=== PATIENT | female | born 1965 | race Caucasian/White ===

== ENCOUNTER 2023-11-06 15:18 | Emergency (ER) | payer BC, SELFPAY ==
[2023-11-06 15:24] VITALS: BP 179/95; PULSE 102; RESP 18; TEMP 36.9; O2SAT 97; BMI 45.5
--- NOTE | 2023-11-06 15:48 | CT_ITS ---
PROCEDURE INFORMATION: Exam: CTA Abdomen and Pelvis With Contrast Exam date and time: 11/06/2023 5:16 PM Age: 57 years old Clinical indication: Injury or trauma; Fall; Blunt trauma; Other: Right flank pain; Additional info: Fall, R CVA pain, R flank pain TECHNIQUE: Imaging protocol: Computed tomographic angiography of the abdomen and pelvis with contrast. Exam focused on the arteries. 3D rendering (Not supervised by radiologist): MIP and/or 3D reconstructed images were created by the technologist. Radiation optimization: All CT scans at this facility use at least one of these dose optimization techniques: automated exposure control; mA and/or kV adjustment per patient size (includes targeted exams where dose is matched to clinical indication); or iterative reconstruction. Contrast material: ISOVUE 370; Contrast volume: 100 ml; Contrast route: INTRAVENOUS (IV); COMPARISON: CT BONY PELVIS 11/06/2023 5:10 PM FINDINGS: Lungs: Mild atelectasis at the lung bases. Diaphragm: Small hiatal hernia. Aorta: No aortic aneurysm. No aortic dissection. Celiac trunk and mesenteric arteries: No occlusion or significant stenosis. Renal arteries: No occlusion or significant stenosis. Right iliac arteries: No occlusion or significant stenosis. Left iliac arteries: No occlusion or significant stenosis. Liver: Hepatic steatosis with hepatomegaly. No liver lesions. Gallbladder and bile ducts: Status post cholecystectomy. No significant biliary ductal dilitation. Pancreas: Unremarkable. No mass. No ductal dilation. Spleen: Unremarkable. No splenomegaly. Adrenal glands: Unremarkable. No mass. Kidneys and ureters: Bilateral renal scarring, greater on the right. No hydronephrosis or focal renal lesion. Stomach and bowel: Mild sigmoid colon diverticulosis without diverticulitis. No dilated or thickened bowel loops. Appendix: No evidence of appendicitis. Intraperitoneal space: Unremarkable. No free air. No significant fluid collection. Lymph nodes: Unremarkable. No enlarged lymph nodes. Urinary bladder: Unremarkable. No mass. Reproductive: Status post hysterectomy. No adnexal masses. Bones/joints: [id number] lumbar spine degenerative change. No evidence of a fracture. Soft tissues: Unremarkable. IMPRESSION: No acute findings.
--- NOTE | 2023-11-06 15:48 | CT_ITS ---
PROCEDURE INFORMATION: Exam: CT Chest Without Contrast; Diagnostic Exam date and time: 11/06/2023 5:07 PM Age: 57 years old Clinical indication: Injury or trauma; Fall; Blunt trauma (contusions or hematomas); Additional info: Fall, R posterior rib and CVA pain TECHNIQUE: Imaging protocol: Diagnostic computed tomography of the chest without contrast. Radiation optimization: All CT scans at this facility use at least one of these dose optimization techniques: automated exposure control; mA and/or kV adjustment per patient size (includes targeted exams where dose is matched to clinical indication); or iterative reconstruction. COMPARISON: No relevant prior studies available. FINDINGS: Lungs: Mild bilateral lower lobe atelectasis. No consolidation or significant nodules. Pleural spaces: Unremarkable. No pneumothorax. No pleural effusion. Heart: No cardiomegaly. Mild lipomatous hypertrophy of the interatrial septum. Coronary arteries: Minimal coronary artery calcification. Lymph nodes: Calcified right paratracheal lymph node. No adenopathy. Vasculature: Unremarkable. No aortic aneurysm. Diaphragm: Small hiatal hernia. Bones/joints: Mild thoracic spine degenerative change. No evidence of a fracture. Severe degenerative change of the left glenohumeral joint. Soft tissues: Unremarkable. IMPRESSION: No acute findings.
--- NOTE | 2023-11-06 15:48 | XR_ITS ---
PROCEDURE INFORMATION: Exam: XR Right Elbow Exam date and time: 11/06/2023 4:41 PM Age: 57 years old Clinical indication: Injury or trauma; Fall; Blunt trauma (contusions or hematomas); Elbow; Right TECHNIQUE: Imaging protocol: Radiologic exam of the right elbow. Views: 3 or more views. COMPARISON: No relevant prior studies available. FINDINGS: Bones/joints: Normal. Soft tissues: Normal. IMPRESSION: No acute findings.
--- NOTE | 2023-11-06 15:48 | CT_ITS ---
PROCEDURE INFORMATION: Exam: CT Pelvis Without Contrast; Skeletal Exam date and time: 11/06/2023 5:10 PM Age: 57 years old Clinical indication: Injury or trauma; Fall; Blunt trauma (contusions or hematomas); Left; Hip; Additional info: Fall, L hip pain TECHNIQUE: Imaging protocol: Computed tomography of the pelvis without contrast. Exam focused on the skeleton. Radiation optimization: All CT scans at this facility use at least one of these dose optimization techniques: automated exposure control; mA and/or kV adjustment per patient size (includes targeted exams where dose is matched to clinical indication); or iterative reconstruction. COMPARISON: CR XR HIP LT 2-3V W/PELVIS 11/06/2023 4:25 PM FINDINGS: Stomach and bowel: Mild sigmoid colon diverticulosis. Reproductive: Status post hysterectomy. Bones/joints: No evidence of a fracture or dislocation. Severe L5-S1 and moderate L4-L5 facet arthropathy. Mild degenerative change of the bilateral hips and sacroiliac joints. Soft tissues: Unremarkable. IMPRESSION: No acute findings.
--- NOTE | 2023-11-06 15:48 | XR_ITS ---
PROCEDURE INFORMATION: Exam: XR Right Knee Exam date and time: 11/06/2023 4:34 PM Age: 57 years old Clinical indication: Injury or trauma; Fall; Blunt trauma; Knee; Right TECHNIQUE: Imaging protocol: Radiologic exam of the right knee. Views: 3 views. COMPARISON: No relevant prior studies available. FINDINGS: Bones/joints: No fracture or dislocation. Moderate medial and lateral compartment and mild patellofemoral compartment degenerative joint disease. Soft tissues: Normal. IMPRESSION: 1. No acute findings. 2. Tricompartmental degenerative joint disease.
--- NOTE | 2023-11-06 15:51 | XR_ITS ---
PROCEDURE INFORMATION: Exam: XR Left Ankle Exam date and time: 11/06/2023 4:30 PM Age: 57 years old Clinical indication: Injury or trauma; Fall; Blunt trauma and swelling (edema); Ankle; Left TECHNIQUE: Imaging protocol: Radiologic exam of the left ankle. Views: 1 or 2 views. COMPARISON: No relevant prior studies available. FINDINGS: Bones/joints: Subchondral cyst in the medial talar dome. Subchondral cysts in the inferior talus adjacent to the middle subtalar joint. Dorsal osteophytic spurring of the talar head. No evidence of a fracture or dislocation. Posterior and plantar surface calcaneal enthesophytes. Soft tissues: Diffuse soft tissue swelling. IMPRESSION: Diffuse soft tissue swelling. No evidence of a fracture.
--- NOTE | 2023-11-06 15:53 | [facility].EDGENADL ---
Discharge Plan Disposition Chief Complaint: Fall Referrals Follow up/Referrals: Aidan Viveros MD [Primary Care Provider] - See instructions Zain Wilson DO [Staff Physician] - See instructions Activity Restrictions/Add. Instructions Additional Instructions/Restrictions: At this time it was felt you are safe to be discharged home. If new or worsening symptoms please do not hesitate to return the emergency department. Please bear weight as tolerated on the affected knee and use crutches and Velcro splint for comfort. If symptoms persist please call and schedule an appointment with Dr. Wilson for continued evaluation as ligamentous injury or meniscal injury are still possible. Clinical Impressions Clinical Impression: Fall, Acute knee pain, Acute hip pain Discharge ED Provider: Luis Armando Castro General Adult HPI General Chief complaint: Fall Stated complaint: 11/04Fall RT knee,elbow and back pain Time Seen by Provider: 11/06/23 15:40 Mode of Arrival: Ambulatory Source of Information: Patient Limitations: No Limitations Description of Symptoms (Recalled from ER Triage Doc. by RN): fell on tuesday evening. pain to r knee and elbow also tailbone. History of Present Illness HPI narrative: Patient is a 57-year-old female with no pertinent past medical history presents emergency department for evaluation of traumatic injury sustained in a fall. Patient slipped on a wet surface falling and striking her bottom and right side. She is currently complaining of right knee pain with limited weightbearing status, right elbow pain, tailbone pain, left hip pain. Denies striking her head or loss of consciousness. Of note patient has vomiting to IV contrast which is pretreated with Benadryl and methylprednisolone. No blood thinners. Related Data Allergies Allergy/AdvReac Type Severity Reaction Status Date / Time ondansetron [From Zofran] Allergy Verified 11/06/23 15:53 [facility] Disclaimer: The information contained in this section may have been updated after the patient was seen, as this information can be updated by other users. Social History Smoking Status: Never smoker alcohol intake: never current occupational status: other Travel in the last 8 weeks: None ROS Obtained: Yes Systems reviewed as appropriate & no additional complaints except as documented Physical Exam General General appearance: alert and in no apparent distress Head Head exam: atraumatic and normocephalic Eye Eye exam: Present PERRL and EOMI ENT ENT exam: Present mucous membranes moist Neck Neck exam: Present normal inspection Chest Chest inspection: Present normal inspection and symmetric chest wall rise Respiratory Respiratory exam: Present normal lung sounds bilaterally; Absent respiratory distress Cardiovascular Cardiovascular exam: Present regular rate and normal rhythm Abdominal Exam Abdominal exam: Present soft and tenderness (Right flank) Extremities Exam Extremities exam: Present other (Swollen and tender right knee with limited active range of motion secondary to pain. Dorsal pedal pulse 2+ on the right. Abrasion on the right elbow with tenderness over the medial and lateral aspect.) Back Exam Back exam: Present tenderness (Tenderness over the left SI joint, no midline tenderness C/T/L-spine. There is tenderness over the sacrum.) and other (Tenderness over the right CVA and right inferior thoracic cage posteriorly.) Neurological Exam Neurological exam: Present alert; Absent motor sensory deficit Psychiatric Psychiatric exam: Present normal affect Skin Skin exam: Present warm and dry Medical Decision Making Hema Inquiry Pt receiving controlled substance: No Vital Signs: 11/06/23 15:24 Temperature 98.4 F Temperature Source Oral Pulse Rate [Right Radial] 102 H Respiratory Rate 18 Blood Pressure [Right Arm] 179/95 H Blood Pressure Mean [Right Arm] 123 02 Sat by Pulse Oximetry 97 Oxygen Delivery Method Room Air Lab Data Lab Results 11/06/23 16:03: WBC 9.4, RBC 4.57, Hgb 15.2, Hct 44.9, MCV 98.1, MCH 33.3 H, MCHC 34.0, RDW 15.2, Plt Count 296, MPV 8.8, Neut % (Auto) 74.9, Lymph % (Auto) 18.8, Patrick % (Auto) 3.4, Eos % (Auto) 2.2, Baso % (Auto) 0.8, Neut # (Auto) 7.0, Lymph # (Auto) 1.8, Patrick # (Auto) 0.3, Eos # (Auto) 0.2, Baso # (Auto) 0.1, Sodium 136, Potassium 3.4 L, Chloride 99, Carbon Dioxide 29, Anion Gap 11.4, BUN 15, Creatinine 1.10 H, Estimated Creat Clear 46, Estimated GFR 52 L, Est GFR ( Amer) 62, Glucose 300 H, Calcium 9.0, Total Bilirubin 0.6, AST 29, ALT 26, Alkaline Phosphatase 96, Total Protein 7.0, Albumin 4.2, Globulin 2.8, Albumin/Globulin Ratio 1.5 11/06/23 16:03 11/06/23 16:03 Orders (Tests/Meds): ED MEDICATIONS Generic Name Dose Route Start Last Admin Trade Name Mannie PRN Reason Stop Dose Admin Sodium Chloride 10 ml 11/06/23 17:33 11/06/23 17:34 Sodium Chloride 0.9% 10ml Syr (Rad Only) IV 12/06/23 17:32 10 ml NEEDED PRN Administration Maintain IV Site Discontinued Medications Generic Name Dose Route Start Last Admin Trade Name Mannie PRN Reason Stop Dose Admin Acetaminophen 1,000 mg 11/06/23 15:48 11/06/23 16:17 Acetaminophen 1,000mg/100ml Vial IV 11/06/23 15:49 1,000 mg ONCE ONE Administration Diphenhydramine HCl 50 mg 11/06/23 15:48 11/06/23 16:17 Diphenhydramine 50mg/Ml Vial IV 11/06/23 15:49 50 mg ONCE ONE Administration Iopamidol 100 ml 11/06/23 17:33 11/06/23 17:34 Iopamidol-370 (76%);100ml Bottle IV 11/06/23 17:34 100 ml ONCE ONE Administration Methylprednisolone Sodium Succinate 125 mg 11/06/23 15:48 11/06/23 16:17 Methylprednisolone Sod Succ 125mg Vial IV 11/06/23 15:49 125 mg ONCE ONE Administration Oxycodone HCl 5 mg 11/06/23 17:50 11/06/23 17:56 Oxycodone 5mg Immediate Release Tablet PO 11/06/23 17:51 5 mg ONCE ONE Administration Sodium Chloride 50 ml 11/06/23 17:33 11/06/23 17:34 0.9 % Sodium Chloride 50 Ml Vial IV 11/06/23 17:34 50 ml ONCE ONE Administration ORDERS Category Date Time Status CT angio abdomen pelvis Stat Cat Scan 11/06/23 15:[address] bony pelvis Stat Cat Scan 11/06/23 15:[address] chest wo con Stat Cat Scan 11/06/23 15:48 Completed Ankle XR - Left 2 Views [XR ankle LT 2V] Stat Exams 11/06/23 15:51 Completed Elbow XR right minimum 3 views [XR elbow RT min 3V] Exams 11/06/23 15:48 Completed Stat Hip XR left minimum 2 views [XR hip LT 2-3V w/pelvis] Exams 11/06/23 15:58 Completed Stat Knee XR right 3 views [XR knee RT 3V] Stat Exams 11/06/23 15:48 Completed CBC w/Auto Diff [Complete Blood Count Auto Diff] Stat Lab 11/06/23 16:03 Completed CMP [Comprehensive Metabolic Panel] Stat Lab 11/06/23 16:03 Completed Medical Decision Narrative: In summary patient is a 57-year-old female with past medical history described above presents emergency department for evaluation of traumatic injury sustained in a fall. Patient is hemodynamically stable nontoxic-appearing upon arrival, afebrile. Differential diagnosis includes fracture, hematoma, renal laceration, ligamentous injury, among others. Workup will be conducted with hematologic labs, plain from the right elbow, right knee, left ankle, AP pelvis and left femur. CT chest without contrast and CTA abdomen pelvis with contrast will be obtained for thorax injuries. CT of the cervical spine and head was considered however patient is cleared per Fletcher guidelines from a cervical spine standpoint and has no reported history of trauma to the head so will be deferred. Initial inventions include pretreatment for contrast with Benadryl and methylprednisolone. IV Tylenol will be administered. Workup reviewed by me, hematologic labs are nonactionable, hyperglycemic. Trauma survey remarkable for swelling of the left ankle, tricompartmental degenerative joint disease of the right knee, no acute other pathology. Given this patient was placed in a Velcro knee splint and given crutches for comfort and instructed to range her knee as she is able to bear weight as tolerated and follow-up with PCP for continued evaluation and possible orthopedic referral. Critical Care Critical Care Time Critical Care Time: No
--- NOTE | 2023-11-06 15:58 | XR_ITS ---
PROCEDURE INFORMATION: Exam: XR Left Hip Exam date and time: 11/06/2023 4:25 PM Age: 57 years old Clinical indication: Injury or trauma; Fall; Blunt trauma (contusions or hematomas); Left; Hip TECHNIQUE: Imaging protocol: Radiologic exam of the left hip. Views: 2 or 3 views hip with pelvis when performed. COMPARISON: No relevant prior studies available. FINDINGS: Bones/joints: No fracture or dislocation. Mild degenerative joint disease of the bilateral hips. Soft tissues: Unremarkable. IMPRESSION: No acute findings.
[2023-11-06 16:05] VITALS: BP 147/83; PULSE 97; O2SAT 97
[2023-11-06 16:17] LABS: Basophils # 0.1 K/mm3 (0-0.2); Basophils % 0.8 % (0.1-2.0); Eosinophils # 0.2 K/mm3 (0.0-0.4); Eosinophils % 2.2 % (0.1-12.0); Hematocrit 44.9 % (37.0-47.0); Hemoglobin 15.2 g/dL (12.2-16.2); Lymphocytes # 1.8 K/mm3 (0.7-4.5); Lymphocytes % 18.8 % (10-50); Mean Corpuscular Hemoglobin 33.3 pg (27.0-31.2); Mean Corpuscular Volume 98.1 fl (81-99); Mean Platelet Volume 8.8 fl (7.4-10.4); Monocytes # 0.3 K/mm3 (0.1-1.0); Monocytes % 3.4 % (1.7-9.3); Neutrophils % 74.9 % (37.0-80.0); Platelet Count 296 K/mm3 (142-424); Red Blood Count 4.57 M/mm3 (4.20-5.40); Red Cell Distribution Width 15.2 % (11.5-17.5); White Blood Count 9.4 K/mm3 (4.8-10.8)
[2023-11-06] MEDS: ACETAMINOPHEN 1,000MG/100ML VIAL 1000 MG IV (16:17)
[2023-11-06] MEDS: METHYLPREDNISOLONE SOD SUCC 125MG VIAL 125 MG IV (16:17)
[2023-11-06] MEDS: diphenhydrAMINE 50MG/ML VIAL 50 MG IV (16:17)
[2023-11-06 16:23] LABS: Chloride 99 mmol/L (98-107); Sodium 136 mmol/L (136-145)
[2023-11-06 16:24] LABS: Potassium 3.4 mmoL/L (3.5-5.1)
[2023-11-06 16:26] LABS: Alanine Aminotransferase 26 U/L (12-78); Alkaline Phosphatase 96 U/L (38-126); Aspartate Amino Transferase 29 U/L (14-36); Bilirubin,Total 0.6 mg/dl (0.2-1.3); Blood Urea Nitrogen 15 mg/dl (7-17); Creatinine Clearance Estimated 46 mL/min (50-200); Estimated Glomerular Filt Rate 52 ml/min (>60); GFR (African American) 62 ML/MIN (>60)
[2023-11-06 16:27] LABS: Albumin Level 4.2 g/dl (3.5-5.0); Albumin/Globulin Ratio 1.5 (1.1-1.8); Anion Gap 11.4 mEq/L (5-15); Carbon Dioxide 29 mmol/L (22.0-30.0); Globulin 2.8 g/dL (1.3-3.2); Glucose 300 mg/dl (74-100)
--- NOTE | 2023-11-06 16:56 | PC.NURSE ---
Patient to RAD.
[2023-11-06] MEDS: 0.9 % SODIUM CHLORIDE 50 ML VIAL IV (17:34)
[2023-11-06] MEDS: IOPAMIDOL-370 (76%);100ML BOTTLE 100 ML IV (17:34)
[2023-11-06] MEDS: SODIUM CHLORIDE 0.9% 10ML SYR (RAD ONLY) 10 ML IV (17:34)
[2023-11-06] MEDS: OXYCODONE 5MG IMMEDIATE RELEASE TABLET 5 MG PO (17:56)
--- NOTE | 2023-11-06 17:59 | PC.NURSE ---
DR VALADEZ AT BEDSIDE TO REEVALUATE PT
[2023-11-06 18:47] VITALS: BP 131/80; PULSE 89; O2SAT 96
[2023-11-06] MEDS: KETOROLAC 30MG/ML VIAL 30 MG IV (19:03)
[2023-11-06 19:25] VITALS: BP 124/76; PULSE 78; RESP 20; TEMP 36.7; O2SAT 98
== END 2023-11-06 19:40 | disposition home or self-care (01) ==
PROVIDERS: Emergency Provider Emergency Medicine; PCP Internal Medicine
DX: M25.561 Pain in right knee (principal); M25.551 Pain in right hip; M25.521 Pain in right elbow; M53.3 Sacrococcygeal disorders, not elsewhere classified; W01.10XA Fall on same level from slipping, tripping and stumbling with subsequent striking against unspecified object, initial encounter
CPT/HCPCS: 71250; 72192; 73080; 73502; 73562; 73600; 74174; 80053; 85025; 96374; 96375; 99285; J0131; Q9967

== ENCOUNTER 2024-06-29 10:51 | Emergency (ER) | payer BC, SELFPAY ==
[2024-06-29] VITALS (15 sets, daily range): BP systolic 107–166; BP diastolic 53–103; PULSE 73–104; RESP 16–22; TEMP 36.6–36.7; O2SAT 95–100; BMI 41.8
--- NOTE | 2024-06-29 11:17 | CT_ITS ---
FINAL REPORT CLINICAL HISTORY: new concern for movement disorder/tic involuntary movement of mouth COMPARISON: None FINDINGS: Axial images of the head were obtained without contrast. Coronal and sagittal reformatted images were also obtained. This study was performed with techniques to keep radiation doses as low as reasonably achievable (ALARA). Individualized dose reduction techniques using automated exposure control or adjustment of mA and/or kV according to the patient's size were employed. There is mild generalized age appropriate atrophy. There are mild periventricular lobe densities that are consistent with mild changes of ischemic/chronic microvascular disease. There is no evidence of intracranial hemorrhage or mass. The ventricular size is within normal limits. There is no evidence of shift of the midline structures. No skull abnormality is seen on the bone window images. IMPRESSION: No acute intracranial abnormality. Mild atrophy and mild changes of chronic ischemic/gliotic microvascular disease. Reviewed, Interpreted and Dictated by Adrien Dill III, MD Transcribed by Gisela Mercado Authenticated and [facility]
[2024-06-29 11:29] LABS: Microscopic, Urine URINE MICROSCOPIC (MICROSCOPIC)
[2024-06-29 11:30] LABS: Basophils # 0.1 K/mm3 (0-0.2); Basophils % 0.8 % (0.1-2.0); Eosinophils # 0.1 K/mm3 (0.0-0.4); Eosinophils % 0.9 % (0.1-12.0); Hematocrit 39.7 % (37.0-47.0); Hemoglobin 12.2 g/dL (12.2-16.2); Lymphocytes # 1.2 K/mm3 (0.7-4.5); Lymphocytes % 14.5 % (10-50); Mean Corpuscular HGB Conc 30.7 g/dL (31.8-35.4); Mean Corpuscular Hemoglobin 32.3 pg (27.0-31.2); Mean Corpuscular Volume 105.4 fl (81-99); Mean Platelet Volume 8.3 fl (7.4-10.4); Monocytes # 0.3 K/mm3 (0.1-1.0); Monocytes % 3.5 % (1.7-9.3); Neutrophils # 6.9 K/mm3 (1.8-7.8); Neutrophils % 80.5 % (37.0-80.0); Platelet Count 374 K/mm3 (142-424); Red Blood Count 3.76 M/mm3 (4.20-5.40); Red Cell Distribution Width 16.5 % (11.5-17.5); White Blood Count 8.5 K/mm3 (4.8-10.8)
[2024-06-29] MEDS: hydrOXYzine pamoate 25MG CAPSULE 50 MG PO (11:31)
--- NOTE | 2024-06-29 11:35 | XR_ITS ---
FINAL REPORT CLINICAL HISTORY: Patient concern for aspiration COMPARISON: None FINDINGS: A single portable view of the chest was obtained. The heart is enlarged. Pulmonary vascularity is within normal limits. The mediastinum is within normal limits. No acute pulmonary abnormality is identified. The bony thorax is intact. IMPRESSION: No active cardiopulmonary disease. Reviewed, Interpreted and Dictated by Adrien Dill III, MD Transcribed by Matilde Pittman Authenticated and [facility]
[2024-06-29 11:36] LABS: Ethyl Alcohol < 10 mg/dl (0-10)
--- NOTE | 2024-06-29 11:38 | PC.NURSE ---
patient gone to CT at this time.
[2024-06-29 11:43] LABS: Ammonia < 9 umol/L (9-30)
[2024-06-29 11:43] LABS: Phosphorous 3.3 mg/dl (2.5-4.5)
--- NOTE | 2024-06-29 11:43 | PC.NURSE ---
patient back in room
--- NOTE | 2024-06-29 11:43 | [facility].EDGENADL ---
Discharge Plan Disposition Patient Disposition: Home, Self-Care Condition: Fair Prescriptions Prescriptions: No Action oxycodone 5 mg tablet 5 mg PO Q8H PRN (Reason: severe pain) Qty: 3 0RF Referrals Follow up/Referrals: Aidan Viveros MD [Primary Care Provider] - See instructions Activity Restrictions/Add. Instructions Additional Instructions/Restrictions: Talk to your family doctor about gradually decreasing/tapering your Xanax. Call your family doctor to establish care for this visit to the emergency department and schedule follow-up within 48 hours to ensure improvement. If you have any worsening of your condition or any other concerning signs or symptoms, return to the emergency department or your primary care doctor for further evaluation. Clinical Impressions Clinical Impression: Involuntary jerky movements Print Language Print Language: American Discharge ED Provider: Mehul Singh General Adult HPI <Mehul Singh MD - Last Filed: 06/29/24 15:41> General Chief complaint: Neuro Symptoms/Deficit Stated complaint: shaking, lightheaded Time Seen by Provider: 06/29/24 10:57 Mode of Arrival: Wheelchair Source of Information: Patient Limitations: No Limitations Description of Symptoms (Recalled from ER Triage Doc. by RN): Pt. presents to the ED with complaints of involuntary movements that are worsening for the last 2 days. She states she was in the hospital with a left leg blood clot. During this time she took herself off her cymbalta, wellbutrin, and xanax. She has been doing well until the last couple days when the movements started. History of Present Illness HPI narrative: Please note that above description of symptoms, in this electronic medical record under categorization of recalled from ER triage doctor by RN are reflective of an initial nursing assessment, however, is not reflective of my full history and physical exam that was personally taken and clarified. Consequentially, this preceding description of symptoms, which may include the patient's categorized chief complaint in the EMR, do not reflect my personal clinical impression, and the ultimate description of history of present illness and patient stated complaints should be deferred to this section of the note. Unless stated otherwise or congruent with this section of the note, additional signs, symptoms, or incongruence should be interpreted as inaccurate with my clinical impression. Related Data Previous Rx's ?Medication ?Instructions ?Recorded oxycodone 5 mg tablet 5 mg PO Q8H PRN severe pain #3 tabs 11/06/23 Allergies Allergy/AdvReac Type Severity Reaction Status Date / Time ondansetron [From Zofran] Allergy Verified 11/06/23 15:53 PFSH <Mehul Singh MD - Last Filed: 06/29/24 15:41> PFS Disclaimer: The information contained in this section may have been updated after the patient was seen, as this information can be updated by other users. Social History (Updated 11/06/23 @ 18:55 by Luis Armando Castro MD) Smoking Status: Never smoker alcohol intake: never current occupational status: other Travel in the last 8 weeks: None <Mehul Singh MD - Last Filed: 06/29/24 15:41> ROS Obtained: Yes All systems reviewed & no additional complaints except as documented Physical Exam <Mehul Singh MD - Last Filed: 06/29/24 15:41> General General appearance: alert and in no apparent distress Head Head exam: atraumatic and normocephalic Eye Eye exam: Present normal appearance, PERRL and EOMI Neck Neck exam: Present normal inspection, full ROM and trachea midline Respiratory Respiratory exam: Absent respiratory distress, wheezes, stridor, accessory muscle use or prolonged expiratory phase Cardiovascular Cardiovascular exam: Present other (Pulses equal symmetric in upper and lower extremities) Abdominal Exam Abdominal exam: Present soft; Absent distention, tenderness or pulsatile mass Extremities Exam Extremities exam: Absent edema Neurological Exam Neurological exam: Present alert, oriented X3, CN II-XII intact, normal gait and other (Per MDM); Absent motor sensory deficit Skin Skin exam: Present warm and dry; Absent diaphoresis or erythema Medical Decision Making <Mehul Singh MD - Last Filed: 06/29/24 15:41> Medical Records Medical records reviewed: Yes I reviewed the patient's medical records. Hema Inquiry Pt receiving controlled substance: No Hema was queried for this patient: No Vital Signs: 06/29/24 11:02 06/29/24 11:08 06/29/24 11:44 Temperature 97.9 F Temperature Source Oral Pulse Rate 97 H 104 H Pulse Rate [Right Brachial] 97 H Respiratory Rate 22 Blood Pressure 132/75 Blood Pressure [Right Arm] 107/89 L Blood Pressure Mean Blood Pressure Mean [Right Arm] 95 Blood Pressure Source Blood Pressure Source [Right Arm] Automatic Cuff Blood Pressure Position Blood Pressure Position [Right Arm] Sitting 02 Sat by Pulse Oximetry 98 98 95 Oxygen Delivery Method Room Air 06/29/24 12:00 06/29/24 12:43 06/29/24 13:00 Temperature Temperature Source Pulse Rate 83 76 73 Pulse Rate [Right Brachial] Respiratory Rate Blood Pressure 128/71 115/53 L 127/98 H Blood Pressure [Right Arm] Blood Pressure Mean Blood Pressure Mean [Right Arm] Blood Pressure Source Blood Pressure Source [Right Arm] Blood Pressure Position Blood Pressure Position [Right Arm] 02 Sat by Pulse Oximetry 98 97 100 Oxygen Delivery Method 06/29/24 13:31 06/29/24 13:51 06/29/24 14:00 Temperature Temperature Source Pulse Rate 83 76 76 Pulse Rate [Right Brachial] Respiratory Rate Blood Pressure 121/65 125/64 143/66 H Blood Pressure [Right Arm] Blood Pressure Mean Blood Pressure Mean [Right Arm] Blood Pressure Source Blood Pressure Source [Right Arm] Blood Pressure Position Blood Pressure Position [Right Arm] 02 Sat by Pulse Oximetry 97 98 98 Oxygen Delivery Method 06/29/24 15:01 06/29/24 15:30 06/29/24 16:00 Temperature Temperature Source Pulse Rate 83 90 Pulse Rate [Right Brachial] Respiratory Rate Blood Pressure 131/64 142/59 H 130/103 H Blood Pressure [Right Arm] Blood Pressure Mean 109 Blood Pressure Mean [Right Arm] Blood Pressure Source Blood Pressure Source [Right Arm] Blood Pressure Position Blood Pressure Position [Right Arm] 02 Sat by Pulse Oximetry 98 96 Oxygen Delivery Method 06/29/24 16:30 06/29/24 17:30 06/29/24 17:44 Temperature 98.0 F Temperature Source Temporal Artery Scan Pulse Rate 78 Pulse Rate [Right Brachial] Respiratory Rate 16 Blood Pressure 122/60 121/75 166/70 H Blood Pressure [Right Arm] Blood Pressure Mean 93 90 Blood Pressure Mean [Right Arm] Blood Pressure Source Automatic Cuff Blood Pressure Source [Right Arm] Blood Pressure Position Sitting Blood Pressure Position [Right Arm] 02 Sat by Pulse Oximetry Oxygen Delivery Method Room Air Lab Data Lab Results 06/29/24 11:14: WBC 8.5, RBC 3.76 L, Hgb 12.2, Hct 39.7, MCV 105.4 H, MCH 32.3 H, MCHC 30.7 L, RDW 16.5, Plt Count 374, MPV 8.3, Neut % (Auto) 80.5 H, Lymph % (Auto) 14.5, [place] % (Auto) 3.5, Eos % (Auto) 0.9, Baso % (Auto) 0.8, Neut # (Auto) 6.9, Lymph # (Auto) 1.2, [place] # (Auto) 0.3, Eos # (Auto) 0.1, Baso # (Auto) 0.1, APTT 27.9, Sodium 140, Potassium 3.9, Chloride 107, Carbon Dioxide 28, Anion Gap 8.9, BUN 15, Creatinine 1.00, Estimated Creat Clear 50, Estimated GFR 57 L, Est GFR ( Amer) 69, Glucose 142 H, Hemoglobin A1c 8.1 H, Calcium 9.4, Phosphorus 3.3, Magnesium 1.8, Total Bilirubin 0.6, AST 27, ALT 15, Alkaline Phosphatase 68, Troponin I < 0.01, Total Protein 6.8, Albumin 3.7, Globulin 3.1, Albumin/Globulin Ratio 1.2, Vitamin B12 377, Folate 3.98, Thyroxine (T4) 8.4, PTH Intact 114.2 H, Urine Color Yellow, Urine Appearance Clear, Urine pH 6.0, Ur Specific Sunshine 1.020, Urine Protein Negative, Urine Glucose (UA) Negative, Urine Ketones 1+, Urine Blood Negative, Urine Nitrate Negative, Urine Bilirubin Negative, Urine Urobilinogen 1.0, Ur Leukocyte Esterase 1+ A, Urine RBC None, Urine WBC 10-20, Ur Squamous Epith Cells 20-50, Urine Bacteria Trace, Urine Opiates Screen Negative, Urine Methadone Screen Negative, Ur Barbituates Screen Negative, Ur Phencyclidine Scrn Negative, Ur Amphetamines Screen Negative, U Benzodiazepines Scrn Positive H, Urine Cocaine Screen Negative, U Marijuana (THC) Screen Positive H, Plasma/Serum Alcohol < 10 06/29/24 14:25: Troponin I < 0.01 06/29/24 : Ammonia < 9 L 06/29/24 11:14 06/29/24 11:14 Orders (Tests/Meds): ED MEDICATIONS Discontinued Medications Generic Name Dose Route Start Last Admin Trade Name Freq PRN Reason Stop Dose Admin Alprazolam 2 mg 06/29/24 15:25 06/29/24 15:37 Alprazolam 1mg Tablet PO 06/29/24 15:26 2 mg ONCE ONE Administration Glucose 15 gm 06/29/24 15:00 06/29/24 15:05 Dextrose 15gm Packet PO 06/29/24 15:01 15 gm ONCE ONE Administration Hydroxyzine Pamoate 50 mg 06/29/24 11:19 06/29/24 11:31 Hydroxyzine Pamoate 25mg Capsule PO 06/29/24 11:20 50 mg ONCE ONE Administration Lorazepam 2 mg 06/29/24 15:16 06/29/24 15:28 Lorazepam 1mg Tablet PO 06/29/24 15:17 Not Given ONCE ONE Sodium Chloride 10 ml 06/29/24 11:25 Sodium Chloride 0.9% 10ml Flush Syringe IV 07/29/24 11:24 NEEDED PRN Maintain IV Site ORDERS Category Date Time Status CT head/brain wo con Stat Cat Scan 06/29/24 11:17 Completed CXR --portable [XR chest portable] Stat Exams 06/29/24 11:35 Completed Ammonia Stat Lab 06/29/24 Completed Complete Blood Count Auto Diff Stat Lab 06/29/24 11:14 Completed Comprehensive Metabolic Panel Stat Lab 06/29/24 11:14 Completed Drug Screen,Urine Stat Lab 06/29/24 11:14 Completed Ethanol [Ethyl Alcohol] Stat Lab 06/29/24 11:14 Completed Folate Stat Lab 06/29/24 11:14 Completed Hemoglobin A1C Stat Lab 06/29/24 11:14 Completed Intact Parathyroid Hormone Stat Lab 06/29/24 11:14 Completed Magnesium Stat Lab 06/29/24 11:14 Completed PHOS [Phosphorous] Stat Lab 06/29/24 11:14 Completed PTT [Activated Partial Thrombo Time] Stat Lab 06/29/24 11:14 Completed T4 (Thyroxine) Stat Lab 06/29/24 11:14 Completed Troponin I Q3H Lab 06/29/24 14:25 Completed Troponin I Stat Lab 06/29/24 11:14 Completed Urinalysis and Microscopic Stat Lab 06/29/24 11:14 Completed Vitamin B12 Stat Lab 06/29/24 11:14 Completed Urine Culture Stat Micro 06/29/24 11:14 Received Medical Decision Narrative: 58-year-old female history of depression, anxiety, recent extensive venous and arterial thrombus left lower extremity necessitating surgical removal currently on Eliquis presenting with new movement disorder. States this has been going on for the last 2 days. Patient states that when she is eating she is able to sense it coming on, and is able to prevent herself from aspirating. Has sudden, forceful jerks face, neck, trunk, upper extremities. No lower extremity symptoms. Patient states she ambulates without issue, has not had falls. No chest pain, shortness of breath, nausea, vomiting, vision changes, neck or back stiffness, loss of bowel or bladder, tongue biting, cheek biting, loss of consciousness, or any other concerns. She does state that she is concerned she may have aspirated, but is having no symptoms from that. Family at bedside also providing history, states the patient has recently been taken off of multiple medications including SSRI, benzodiazepine, pain and anxiety medications. In the last few days, has increased her gabapentin from 300-600 3 times daily. Unsure if these are related. Also states that patient has been severely depressed since the scientology of lower extremity clot and removal and starting on blood thinners she was active, participating in daily activities actively prior, now has been depressed and largely stays in bed all day. History was obtained via conversation with patient and family. On arrival, patient hemodynamically stable, alert, oriented x4, appropriate, GCS 15, moving all extremities spontaneously, pupils equal and reactive to light. Full physical exam performed and significant for well-appearing 58-year-old female who is in no acute distress. Intermittently having forceful jerks of head, neck, upper extremities. Speaking in full sentences without issue. Movement disorder is distractible. Although happening every 5 to 10 seconds when patient is at rest and not interacting, patient has no episodes of this during entire neurologic exam including cranial nerve, cerebellar, motor and sensory exams over the period of a few minutes. Cardiac exam within normal limits. Left lower extremity is edematous, mildly discolored, but significantly improved from photos which family showed me at bedside from previous intervention. Pulses are equal and symmetric in lower extremities and upper extremities. Differential includes conversion disorder, new movement disorder, frontotemporal abnormality, vitamin deficiency, metabolic deficiency, endocrinologic abnormality, diaphragmatic spasms, among others. Patient placed on continuous cardiac monitoring and continuous pulse ox with initial blood pressure 107/80, heart rate 97, saturation 98% on room. Patient was given 50 mg hydroxyzine for symptomatic management and correction of underlying abnormalities. Workup independently interpreted and significant for nonactionable CBC or chemistry. Patient's vitamin labs negative. Calcium normal. PTH is elevated, I feel this is probably unlikely to be related. Thyroid studies nonactionable. On independent interpretation of imaging, no acute intracranial hemorrhage or frontotemporal degeneration. See radiology read for full review of final results. 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 Video was sent to provider clinical line who was able to evaluate remotely, recommended trialing 2 mg alprazolam and discharging if symptoms resolved. Even if symptoms do not resolve, recommended starting alprazolam and outpatient management with prolonged taper with PCP. Prior to alprazolam and reevaluation, care handed off to oncoming physician. [facility]idence [facility] Director disclaimer Much of this encounter note is an electronic technology advisor spoken language to printed text. Electronic technology advisor of the spoken language may permit errors. Although I have reviewed the note, some errors may still exist. <Tanner Mar MD - Last Filed: 06/29/24 20:24> Vital Signs: 06/29/24 11:02 06/29/24 11:08 06/29/24 11:44 Temperature 97.9 F Temperature Source Oral Pulse Rate 97 H 104 H Pulse Rate [Right Brachial] 97 H Respiratory Rate 22 Blood Pressure 132/75 Blood Pressure [Right Arm] 107/89 L Blood Pressure Mean Blood Pressure Mean [Right Arm] 95 Blood Pressure Source Blood Pressure Source [Right Arm] Automatic Cuff Blood Pressure Position Blood Pressure Position [Right Arm] Sitting 02 Sat by Pulse Oximetry 98 98 95 Oxygen Delivery Method Room Air 06/29/24 12:00 06/29/24 12:43 06/29/24 13:00 Temperature Temperature Source Pulse Rate 83 76 73 Pulse Rate [Right Brachial] Respiratory Rate Blood Pressure 128/71 115/53 L 127/98 H Blood Pressure [Right Arm] Blood Pressure Mean Blood Pressure Mean [Right Arm] Blood Pressure Source Blood Pressure Source [Right Arm] Blood Pressure Position Blood Pressure Position [Right Arm] 02 Sat by Pulse Oximetry 98 97 100 Oxygen Delivery Method 06/29/24 13:31 06/29/24 13:51 06/29/24 14:00 Temperature Temperature Source Pulse Rate 83 76 76 Pulse Rate [Right Brachial] Respiratory Rate Blood Pressure 121/65 125/64 143/66 H Blood Pressure [Right Arm] Blood Pressure Mean Blood Pressure Mean [Right Arm] Blood Pressure Source Blood Pressure Source [Right Arm] Blood Pressure Position Blood Pressure Position [Right Arm] 02 Sat by Pulse Oximetry 97 98 98 Oxygen Delivery Method 06/29/24 15:01 06/29/24 15:30 06/29/24 16:00 Temperature Temperature Source Pulse Rate 83 90 Pulse Rate [Right Brachial] Respiratory Rate Blood Pressure 131/64 142/59 H 130/103 H Blood Pressure [Right Arm] Blood Pressure Mean 109 Blood Pressure Mean [Right Arm] Blood Pressure Source Blood Pressure Source [Right Arm] Blood Pressure Position Blood Pressure Position [Right Arm] 02 Sat by Pulse Oximetry 98 96 Oxygen Delivery Method 06/29/24 16:30 06/29/24 17:30 06/29/24 17:44 Temperature 98.0 F Temperature Source Temporal Artery Scan Pulse Rate 78 Pulse Rate [Right Brachial] Respiratory Rate 16 Blood Pressure 122/60 121/75 166/70 H Blood Pressure [Right Arm] Blood Pressure Mean 93 90 Blood Pressure Mean [Right Arm] Blood Pressure Source Automatic Cuff Blood Pressure Source [Right Arm] Blood Pressure Position Sitting Blood Pressure Position [Right Arm] 02 Sat by Pulse Oximetry Oxygen Delivery Method Room Air Lab Data Lab Results 06/29/24 11:14: WBC 8.5, RBC 3.76 L, Hgb 12.2, Hct 39.7, MCV 105.4 H, MCH 32.3 H, MCHC 30.7 L, RDW 16.5, Plt Count 374, MPV 8.3, Neut % (Auto) 80.5 H, Lymph % (Auto) 14.5, [place] % (Auto) 3.5, Eos % (Auto) 0.9, Baso % (Auto) 0.8, Neut # (Auto) 6.9, Lymph # (Auto) 1.2, [place] # (Auto) 0.3, Eos # (Auto) 0.1, Baso # (Auto) 0.1, APTT 27.9, Sodium 140, Potassium 3.9, Chloride 107, Carbon Dioxide 28, Anion Gap 8.9, BUN 15, Creatinine 1.00, Estimated Creat Clear 50, Estimated GFR 57 L, Est GFR ( Amer) 69, Glucose 142 H, Hemoglobin A1c 8.1 H, Calcium 9.4, Phosphorus 3.3, Magnesium 1.8, Total Bilirubin 0.6, AST 27, ALT 15, Alkaline Phosphatase 68, Troponin I < 0.01, Total Protein 6.8, Albumin 3.7, Globulin 3.1, Albumin/Globulin Ratio 1.2, Vitamin B12 377, Folate 3.98, Thyroxine (T4) 8.4, PTH Intact 114.2 H, Urine Color Yellow, Urine Appearance Clear, Urine pH 6.0, Ur Specific Sunshine 1.020, Urine Protein Negative, Urine Glucose (UA) Negative, Urine Ketones 1+, Urine Blood Negative, Urine Nitrate Negative, Urine Bilirubin Negative, Urine Urobilinogen 1.0, Ur Leukocyte Esterase 1+ A, Urine RBC None, Urine WBC 10-20, Ur Squamous Epith Cells 20-50, Urine Bacteria Trace, Urine Opiates Screen Negative, Urine Methadone Screen Negative, Ur Barbituates Screen Negative, Ur Phencyclidine Scrn Negative, Ur Amphetamines Screen Negative, U Benzodiazepines Scrn Positive H, Urine Cocaine Screen Negative, U Marijuana (THC) Screen Positive H, Plasma/Serum Alcohol < 10 06/29/24 14:25: Troponin I < 0.01 06/29/24 : Ammonia < 9 L Orders (Tests/Meds): ED MEDICATIONS Discontinued Medications Generic Name Dose Route Start Last Admin Trade Name Freq PRN Reason Stop Dose Admin Alprazolam 2 mg 06/29/24 15:25 06/29/24 15:37 Alprazolam 1mg Tablet PO 06/29/24 15:26 2 mg ONCE ONE Administration Glucose 15 gm 06/29/24 15:00 06/29/24 15:05 Dextrose 15gm Packet PO 06/29/24 15:01 15 gm ONCE ONE Administration Hydroxyzine Pamoate 50 mg 06/29/24 11:19 06/29/24 11:31 Hydroxyzine Pamoate 25mg Capsule PO 06/29/24 11:20 50 mg ONCE ONE Administration Lorazepam 2 mg 06/29/24 15:16 06/29/24 15:28 Lorazepam 1mg Tablet PO 06/29/24 15:17 Not Given ONCE ONE Sodium Chloride 10 ml 06/29/24 11:25 Sodium Chloride 0.9% 10ml Flush Syringe IV 07/29/24 11:24 NEEDED PRN Maintain IV Site ORDERS Category Date Time Status CT head/brain wo con Stat Cat Scan 06/29/24 11:17 Completed CXR --portable [XR chest portable] Stat Exams 06/29/24 11:35 Completed Ammonia Stat Lab 06/29/24 Completed Complete Blood Count Auto Diff Stat Lab 06/29/24 11:14 Completed Comprehensive Metabolic Panel Stat Lab 06/29/24 11:14 Completed Drug Screen,Urine Stat Lab 06/29/24 11:14 Completed Ethanol [Ethyl Alcohol] Stat Lab 06/29/24 11:14 Completed Folate Stat Lab 06/29/24 11:14 Completed Hemoglobin A1C Stat Lab 06/29/24 11:14 Completed Intact Parathyroid Hormone Stat Lab 06/29/24 11:14 Completed Magnesium Stat Lab 06/29/24 11:14 Completed PHOS [Phosphorous] Stat Lab 06/29/24 11:14 Completed PTT [Activated Partial Thrombo Time] Stat Lab 06/29/24 11:14 Completed T4 (Thyroxine) Stat Lab 06/29/24 11:14 Completed Troponin I Q3H Lab 06/29/24 14:25 Completed Troponin I Stat Lab 06/29/24 11:14 Completed Urinalysis and Microscopic Stat Lab 06/29/24 11:14 Completed Vitamin B12 Stat Lab 06/29/24 11:14 Completed Urine Culture Stat Micro 06/29/24 11:14 Received Medical Decision Narrative: 58-year-old female history of depression, anxiety, recent extensive venous and arterial thrombus left lower extremity necessitating surgical removal currently on Eliquis presenting with new movement disorder. States this has been going on for the last 2 days. Patient states that when she is eating she is able to sense it coming on, and is able to prevent herself from aspirating. Has sudden, forceful jerks face, neck, trunk, upper extremities. No lower extremity symptoms. Patient states she ambulates without issue, has not had falls. No chest pain, shortness of breath, nausea, vomiting, vision changes, neck or back stiffness, loss of bowel or bladder, tongue biting, cheek biting, loss of consciousness, or any other concerns. She does state that she is concerned she may have aspirated, but is having no symptoms from that. Family at bedside also providing history, states the patient has recently been taken off of multiple medications including SSRI, benzodiazepine, pain and anxiety medications. In the last few days, has increased her gabapentin from 300-600 3 times daily. Unsure if these are related. Also states that patient has been severely depressed since the scientology of lower extremity clot and removal and starting on blood thinners she was active, participating in daily activities actively prior, now has been depressed and largely stays in bed all day. History was obtained via conversation with patient and family. On arrival, patient hemodynamically stable, alert, oriented x4, appropriate, GCS 15, moving all extremities spontaneously, pupils equal and reactive to light. Full physical exam performed and significant for well-appearing 58-year-old female who is in no acute distress. Intermittently having forceful jerks of head, neck, upper extremities. Speaking in full sentences without issue. Movement disorder is distractible. Although happening every 5 to 10 seconds when patient is at rest and not interacting, patient has no episodes of this during entire neurologic exam including cranial nerve, cerebellar, motor and sensory exams over the period of a few minutes. Cardiac exam within normal limits. Left lower extremity is edematous, mildly discolored, but significantly improved from photos which family showed me at bedside from previous intervention. Pulses are equal and symmetric in lower extremities and upper extremities. Differential includes conversion disorder, new movement disorder, frontotemporal abnormality, vitamin deficiency, metabolic deficiency, endocrinologic abnormality, diaphragmatic spasms, among others. Patient placed on continuous cardiac monitoring and continuous pulse ox with initial blood pressure 107/80, heart rate 97, saturation 98% on room. Patient was given 50 mg hydroxyzine for symptomatic management and correction of underlying abnormalities. Workup independently interpreted and significant for nonactionable CBC or chemistry. Patient's vitamin labs negative. Calcium normal. PTH is elevated, I feel this is probably unlikely to be related. Thyroid studies nonactionable. On independent interpretation of imaging, no acute intracranial hemorrhage or frontotemporal degeneration. See radiology read for full review of final results. 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 Video was sent to provider clinical line who was able to evaluate remotely, recommended trialing 2 mg alprazolam and discharging if symptoms resolved. Even if symptoms do not resolve, recommended starting alprazolam and outpatient management with prolonged taper with PCP. Prior to alprazolam and reevaluation, care handed off to oncoming physician. [facility]idence [facility] Director disclaimer Much of this encounter note is an electronic technology advisor spoken language to printed text. Electronic technology advisor of the spoken language may permit errors. Although I have reviewed the note, some errors may still exist. Tanner Mar MD: I assumed care of this patient from the previous emergency medicine physician. Upon reevaluation patient has improvement of symptoms. She is stable for discharge at this time. 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 She has adequate medication to bridge her to outpatient follow-up. Return precautions given. Critical Care <Mehul Singh MD - Last Filed: 06/29/24 15:41> Critical Care Time Critical Care Time: No
[2024-06-29 11:51] LABS: Appearance,Urine CLEAR (Clear); Blood, Urine Negative (Negative); Color,Urine YELLOW (Yellow); Glucose,Urine (UA) Negative (Negative); Ketones,Urine 1+ (Negative); Leukocyte Esterase,Urine 1+ (Negative); Nitrate,Urine Negative (Negative); Protein,Urine Negative (Negative)
[2024-06-29 11:56] LABS: Intact Parathyroid Hormone 114.2 pg/mL (7.5-53.5)
[2024-06-29 11:57] LABS: Activated Partial Thrombo Time 27.9 seconds (22.8-30.6)
[2024-06-29 12:04] LABS: Amphetamine/Metha Screen,Urine Negative ng/ml (<1000)
[2024-06-29 12:05] LABS: Barbiturates Screen,Urine Negative ng/ml (<200)
[2024-06-29 12:06] LABS: Benzodiazepines Screen,Urine Positive ng/ml (<200); Cannabinoid Screen,Urine Positive ng/ml (<50)
[2024-06-29 12:07] LABS: Cocaine Screen,Urine Negative ng/ml (<300); Methadone Screen,Urine Negative ng/ml (<300)
[2024-06-29 12:08] LABS: Opiate Screen,Urine Negative ng/ml (<300)
[2024-06-29 12:09] LABS: Phencyclidine Screen,Urine Negative ng/ml (<25)
[2024-06-29 12:33] LABS: Bilirubin,Urine Negative (Negative)
--- NOTE | 2024-06-29 12:37 | PC.NURSE ---
rounded on pt, no change at this time, aware
[2024-06-29 12:59] LABS: Bacteria,Urine Trace /lpf; Squamous Epithelial Cell,Urine 20-50 #/hpf (0-5)
[2024-06-29 13:10] LABS: Troponin I < 0.01 ng/ml (0.00-0.034)
[2024-06-29 13:12] LABS: T4 (Thyroxine) 8.4 ug/dl (5.53-11.0)
[2024-06-29 13:16] LABS: Alanine Aminotransferase 15 U/L (12-78); Albumin Level 3.7 g/dl (3.5-5.0); Albumin/Globulin Ratio 1.2 (1.1-1.8); Alkaline Phosphatase 68 U/L (38-126); Anion Gap 8.9 mEq/L (5-15); Aspartate Amino Transferase 27 U/L (14-36); Bilirubin,Total 0.6 mg/dl (0.2-1.3); Blood Urea Nitrogen 15 mg/dl (7-17); Calcium 9.4 mg/dl (8.4-10.2); Carbon Dioxide 28 mmol/L (22.0-30.0); Chloride 107 mmol/L (98-107); Creatinine Clearance Estimated 50 mL/min (50-200); Estimated Glomerular Filt Rate 57 ml/min (>60); GFR (African American) 69 ML/MIN (>60); Globulin 3.1 g/dL (1.3-3.2); Glucose 142 mg/dl (74-100); Magnesium 1.8 mg/dl (1.6-2.3); Potassium 3.9 mmoL/L (3.5-5.1); Sodium 140 mmol/L (136-145); Total Protein,Serum 6.8 g/dl (6.3-8.2)
--- NOTE | 2024-06-29 13:41 | PC.NURSE ---
calling [facility] for consult at this time.
[2024-06-29 13:42] LABS: Hemoglobin A1C 8.1 % (4.0-6.0)
--- NOTE | 2024-06-29 13:45 | PC.NURSE ---
[facility] will call back as soon at they have a physician on the line.
[2024-06-29 14:01] LABS: Vitamin B12 377 pg/mL (239-931)
[2024-06-29 14:02] LABS: Folate 3.98 ng/mL
[2024-06-29 15:04] LABS: Troponin I < 0.01 ng/ml (0.00-0.034)
[2024-06-29] MEDS: DEXTROSE 15GM PACKET 15 GM PO (15:05)
[2024-06-29] MEDS: ALPRAZolam 1MG TABLET 2 MG PO (15:37)
--- NOTE | 2024-06-29 15:56 | PC.NURSE ---
glucose checked 102
--- NOTE | 2024-07-02 08:49 | PC.NURSE ---
discussed urine culture with , contaminated, ntd
== END 2024-06-29 17:46 | disposition home or self-care (01) ==
PROVIDERS: Emergency Provider Emergency Medicine; PCP Internal Medicine
DX: R42 Dizziness and giddiness (principal); R25.1 Tremor, unspecified; Z86.718 Personal history of other venous thrombosis and embolism; Z79.01 Long term (current) use of anticoagulants
CPT/HCPCS: 70450; 71045; 80053; 80307; 80320; 81001; 82140; 82607; 82746; 83036; 83735; 83970; 84100; 84436; 84484; 85025; 85730; 87086; 87088; 99285; G0480